=== PATIENT | female | born 1990 | race African-American/Black ===

== ENCOUNTER 2022-12-29 09:23 | Inpatient (IN) | payer OTHER ==
[2022-12-29] MEDS: ELECTROLYTE-148 SOLN 1,000 ML IV SCH ×3 (09:45→20:09)
[2022-12-29] MEDS ORDERED: AMPICILLIN - 2 GM in SODIUM CHLORIDE 100 ML IVPB ONE (09:55)
[2022-12-29] MEDS ORDERED: OXYTOCIN 30 UNITS in 0.9% NS 30 UNIT/500 ML INFUS.BAG IVPB SCH (10:00)
[2022-12-29 10:03] VITALS: BMI 35.2
[2022-12-29] MEDS ORDERED: AMPICILLIN SODIUM 2 GM VIAL ONE (10:04)
[2022-12-29] MEDS ORDERED: OXYTOCIN 30 UNITS in 0.9% NS 30 UNIT/500 ML INFUS.BAG IVPB ONE (10:40)
[2022-12-29 10:52] LABS: BASO % 0.2 % (0-2.0); EOS % 1.1 % (0-4.5); HEMATOCRIT 34.5 % (32.4-45.2); HEMOGLOBIN 10.8 GM/dL (10.7-15.3); LYMPH % 15.6 % (8-40); MCH 26.3 pg (25.7-33.7); MCHC 31.4 g/dl (32.0-36.0); MEAN CELL VOLUME 83.7 fl (80-96); MEAN PLT VOLUME 10.7 fl (7.5-11.1); MONO % 7.2 % (3.8-10.2); NEUT % 75.9 % (42.8-82.8); PLATELET COUNT 145 10^3/uL (134-434); RBC 4.13 M/mm3 (3.60-5.2); RDW 16.6 % (11.6-15.6); WHITE BLOOD COUNT 7.1 K/mm3 (4.0-10.0)
[2022-12-29 10:56] LABS: INR 0.91 (0.83-1.09); PROTHROMBIN TIME (PATIENT) 10.6 SEC (9.7-13.0)
[2022-12-29 10:59] LABS: ACTIVATED PTT 24.8 SECONDS (25.2-36.5)
[2022-12-29 11:04] LABS: POTASSIUM 3.7 mmol/L (3.5-5.1)
[2022-12-29 11:06] LABS: BLOOD UREA NITROGEN 11.7 mg/dL (7-18); CALCIUM 8.5 mg/dL (8.5-10.1)
[2022-12-29 11:10] LABS: CREATININE 0.5 mg/dL (0.55-1.3)
[2022-12-29 12:04] LABS: HIV INTERPRETATION NEGATIVE (NEGATIVE)
[2022-12-29] MEDS ORDERED: AMPICILLIN SODIUM 1 GM VIAL ONE ×3 (13:18→23:01)
[2022-12-29] MEDS ORDERED: BUPIVACAINE HCL/PF 0.25% (2.5MG/ML) 10 ML VIAL ONE ×2 (13:53→19:25)
[2022-12-29] MEDS: AMPICILLIN - 1 GM in SODIUM CHLORIDE 100 ML IVPB SCH ×3 (14:01→22:59)
[2022-12-29] MEDS ORDERED: FENTANYL/BUPIVACAINE/NS/PF - PCEA - 50 ML DISP.SYRIN EP ONE ×2 (19:15→22:53)
[2022-12-29] MEDS ORDERED: LIDO 2%/EPI 1:200000 PRESRVFRE (20 ML SDVIAL) ONE (19:36)
[2022-12-29] MEDS: FENTANYL/BUPIVACAINE/NS/PF - PCEA - 50 ML DISP.SYRIN EP SCH ×2 (19:55→23:00)
[2022-12-29] MEDS ORDERED: NALOXONE HCL 0.4 MG/ML VIAL IVPUSH PRN (20:14)
[2022-12-29] MEDS ORDERED: SODIUM CHLORIDE 100 ML IVPB ONE (23:01)
[2022-12-29] MEDS ORDERED: LIDOCAINE HCL 1% PRESERVATIVE FREE - 30ML VIAL ONE (23:56)
[2022-12-29] MEDS ORDERED: OXYTOCIN 20 UNITS in 0.9% NS 20 UNIT/1,000 ML INFUS.BAG IV ONE (23:56)
[2022-12-30] MEDS ORDERED: FENTANYL/BUPIVACAINE/NS/PF - PCEA - 50 ML DISP.SYRIN EP ONE (02:26)
[2022-12-30] MEDS ORDERED: BUPIVACAINE HCL/PF 0.25% (2.5MG/ML) 10 ML VIAL ONE (02:41)
[2022-12-30] MEDS ORDERED: AMPICILLIN SODIUM 1 GM VIAL ONE (02:41)
[2022-12-30] MEDS: AMPICILLIN - 1 GM in SODIUM CHLORIDE 100 ML IVPB SCH ×2 (02:45→06:41)
[2022-12-30] MEDS ORDERED: BENZOCAINE 28 GM HEMORRHOIDAL OINTMENT TP PRN (05:41)
[2022-12-30] MEDS ORDERED: oxyCODONE HCL 5 MG TABLET PO PRN (05:41)
[2022-12-30] MEDS ORDERED: WITCH HAZEL 50% (TUCKS) 40 PAD/JAR PAD TP PRN (05:41)
[2022-12-30] MEDS ORDERED: BENZOCAINE 20% 57 GM BOTTLE TP PRN (05:41)
[2022-12-30] MEDS ORDERED: BISACODYL 10 MG SUPP.RECT RC PRN (05:41)
[2022-12-30] MEDS ORDERED: METHYLERGONOVINE MALEATE 0.2 MG/1 ML AMP IM PRN (05:41)
[2022-12-30] MEDS ORDERED: ACETAMINOPHEN 325 MG TABLET (FP) PO PRN (05:41)
[2022-12-30] MEDS ORDERED: OXYTOCIN 20 UNITS in 0.9% NS 20 UNIT/1,000 ML INFUS.BAG IV SCH (05:45)
[2022-12-30] MEDS: IBUPROFEN 600 MG TABLET (FP) PO PRN ×4 (07:50→21:17)
[2022-12-30] MEDS ORDERED: IBUPROFEN 600 MG TABLET (FP) PO ONE (07:52)
[2022-12-30] MEDS ORDERED: FERROUS SO4 325 MG TABLET (FP) ONE (07:53)
[2022-12-30] MEDS: FERROUS SO4 325 MG TABLET (FP) PO SCH ×3 (07:56→17:11)
[2022-12-30 09:32] VITALS: RESP 18
[2022-12-30] MEDS: PRENATAL VITAMINS W/ FOLIC ACID TABLET (FP) PO SCH (09:51)
[2022-12-30 11:12] LABS: BASO % 0.2 % (0-2.0); EOS % 0.7 % (0-4.5); HEMATOCRIT 32.1 % (32.4-45.2); LYMPH % 9.9 % (8-40); MCH 26.3 pg (25.7-33.7); MCHC 31.2 g/dl (32.0-36.0); MEAN CELL VOLUME 84.3 fl (80-96); MONO % 7.1 % (3.8-10.2); NEUT % 82.1 % (42.8-82.8); PLATELET COUNT 135 10^3/uL (134-434); RBC 3.81 M/mm3 (3.60-5.2); RDW 17.1 % (11.6-15.6); WHITE BLOOD COUNT 14.4 K/mm3 (4.0-10.0)
[2022-12-31] MEDS: IBUPROFEN 600 MG TABLET (FP) PO PRN ×2 (01:43→06:19)
[2022-12-31 08:49] VITALS: BP 125/85; PULSE 57; TEMP 99
[2022-12-31 09:19] LABS: HEMOGLOBIN 9.2 GM/dL (10.7-15.3); MCH 26.7 pg (25.7-33.7); MCHC 32.7 g/dl (32.0-36.0); MEAN CELL VOLUME 81.7 fl (80-96); MEAN PLT VOLUME 10.2 fl (7.5-11.1); PLATELET COUNT 113 10^3/uL (134-434); RBC 3.43 M/mm3 (3.60-5.2); RDW 17.3 % (11.6-15.6); WHITE BLOOD COUNT 8.2 K/mm3 (4.0-10.0)
[2022-12-31] MEDS: PRENATAL VITAMINS W/ FOLIC ACID TABLET (FP) PO SCH (10:04)
[2022-12-31] MEDS: FERROUS SO4 325 MG TABLET (FP) PO SCH ×2 (10:04→13:49)
[2022-12-31] MEDS ORDERED: SENNOSIDES/DOCUSATE COMBO (SENNA PLUS) TABLET (UD) PO PRN (22:00)
== END 2022-12-31 17:20 | disposition home or self-care (01) | DRG 807 ==
LOC: JLDR 09:23 → J3W 12-30 08:20
PROVIDERS: ADMIT Obstetrics & Gynecology; ATTEND Obstetrics & Gynecology
PROC: 10E0XZZ Delivery of Products of Conception, External Approach (ICD-10-PCS; principal; 2022-12-30)
DX: O99.824 Streptococcus B carrier state complicating childbirth (principal); Z37.0 Single live birth; O69.81X0 Labor and delivery complicated by cord around neck, without compression, not applicable or unspecified; Z3A.39 39 weeks gestation of pregnancy
CPT/HCPCS: 36415; 80048; 85025; 85027; 85610; 85730; 86780; 86850; 86900; 86901; 87389